=== PATIENT | female | born 1950 ===

== ENCOUNTER → 2017-09-21 | Outpatient (CLI) | payer BC ==
[2017-09-21 16:11] VITALS: BP 115/58
== END | disposition home or self-care (01) ==
LOC: SRCNTR 15:41
PROVIDERS: ATTEND Internal Medicine Clinical Cardiac Electrophysiology
DX: Z45.018 Encounter for adjustment and management of other part of cardiac pacemaker (principal)
CPT/HCPCS: G0463

== ENCOUNTER → 2017-09-25 | Outpatient (CLI) | payer BC ==
[~2017-09-25] VITALS: Ht 144.8 cm; Wt 48.0 kg
[2017-09-25 14:41] VITALS: BP 106/59
== END | disposition home or self-care (01) ==
LOC: EDUNIT# 14:15 → SRCNTR 14:22
PROVIDERS: ATTEND Internal Medicine Clinical Cardiac Electrophysiology
DX: I10 Essential (primary) hypertension (principal); I48.91 Unspecified atrial fibrillation
CPT/HCPCS: G0463

== ENCOUNTER → 2017-10-16 | Outpatient (CLI) | payer BC ==
[~2017-10-16] VITALS: Ht 144.8 cm; Wt 48.0 kg
[2017-10-16 14:56] VITALS: BP 120/68
== END | disposition home or self-care (01) ==
LOC: SRCNTR 14:51
PROVIDERS: ATTEND Internal Medicine Clinical Cardiac Electrophysiology
DX: Z45.018 Encounter for adjustment and management of other part of cardiac pacemaker (principal); I48.91 Unspecified atrial fibrillation; I10 Essential (primary) hypertension
CPT/HCPCS: G0463